=== PATIENT | female | born 1950 | race Caucasian/White ===

== ENCOUNTER 2016-07-23 11:30 | Emergency (ER) | payer MEDICARE, OTHER ==
[2016-07-23] MEDS ORDERED: Sodium Chloride 0.9% 10 ML Syringe FLUSH PRN (11:34)
--- NOTE | 2016-07-23 11:41 | EDM.PDOC ---
ED HPI GENERAL MEDICAL PROBLEM - General Chief Complaint: Behavioral/Psych Stated Complaint: ANXIETY Time Seen by Provider: 07/23/16 11:31 Source of Information: Reports: EMS, EMS Notes Reviewed, RN, RN Notes Reviewed History Limitations: Reports: No Limitations - History of Present Illness INITIAL COMMENTS - FREE TEXT/NARRATIVE: Patient is brought to the ED at [facility] via EMS for a severe panic attack. According to EMS, the patient was involved in a verbal argument with family which triggered the panic attack. EMS was then called due to hyperventilation. Onset: Today Onset Date: 07/23/16 ED ROS GENERAL - Review of Systems Review Of Systems: Unable To Obtain (due to patient currently hyperventilating; info receive from EMS crew.) ED EXAM, BEHAVIORAL HEALTH - Physical Exam Exam: See Below Exam Limited By: Altered Mental Status General Appearance: Anxious Eye Exam: Bilateral Eye: Normal Inspection Head: Atraumatic, Normocephalic Respiratory/Chest: No Respiratory Distress, Lungs Clear, Normal Breath Sounds Cardiovascular: Regular Rate, Rhythm Neurological: Alert, Oriented x 3 (due to hyperventilation; patient unable to give information) Psychiatric: Uncooperative, Other (currently hyperventilating) Skin Exam: Warm, Dry, Intact, Normal color, No rash COURSE, BEHAVIORAL HEALTH COMP - Course Vital Signs: Last Vital Signs Temp 36.9 C 07/23/16 11:41 Pulse 101 H 07/23/16 11:41 Resp 35 H 07/23/16 11:41 BP 134/97 H 07/23/16 11:41 Pulse Ox 98 07/23/16 11:41 Orders, Labs, Meds: Active Orders 24 hr Category Date Time Status Sodium Chloride 0.9% [Normal Saline] 1,000 ml Med 07/23/16 11:45 Active IV ASDIRECTED Sodium Chloride 0.9% [Saline Flush] Med 07/23/16 11:34 Active 10 ml FLUSH ASDIRECTED PRN Peripheral IV Insertion Adult [OM.PC] Routine Oth 07/23/16 11:34 Ordered Medication Orders Sodium Chloride (Normal Saline) 1,000 mls @ 999 mls/hr IV ASDIRECTED LYNNE Last Admin: 07/23/16 11:45 Dose: 999 mls/hr Sodium Chloride (Saline Flush) 10 ml FLUSH ASDIRECTED PRN PRN Reason: Keep Vein Open Medications Generic Name Dose Route Start Last Admin Trade Name Freq PRN Reason Stop Dose Admin Sodium Chloride 1,000 mls @ 999 mls/hr 07/23/16 11:45 07/23/16 11:45 Normal Saline IV 999 mls/hr ASDIRECTED LYNNE Administration Sodium Chloride 10 ml 07/23/16 11:34 Saline Flush FLUSH ASDIRECTED PRN Keep Vein Open Re-Assessment/Re-Exam: Patient much better after Valium given by EMS crew. She states she feels very tired and wants to go home. VSS. Assessment unremarkable. Re-Assessment/Re-Exam Date: 07/23/16 Medical Clearance: 07/23/16 12:13 Patient is medically cleared to be discharge home Discharge vs Psych Eval/Treatment:: 07/23/16 12:13 Discharge Departure - Departure Time of Disposition: 12:13 Disposition: Home, Self-Care 01 Condition: good Clinical Impression: Panic attack as reaction to stress - Discharge Information Instructions: Panic Attacks, Hyperventilation Referrals: PCP,Not In Area [Primary Care Provider] - Forms: ED Department Discharge Additional Instructions: 1. Stay well hydrated; rest and relax today 2. Avoid any stressful situations; keep low stimulus 3. See your Primary this week for a follow up - Problem List Review Problem List Initiated/Reviewed/Updated: Yes - My Orders Last 24 Hours: My Active Orders 07/23/16 11:34 Sodium Chloride 0.9% [Saline Flush] 10 ml FLUSH ASDIRECTED PRN Peripheral IV Insertion Adult [OM.PC] Routine 07/23/16 11:45 Sodium Chloride 0.9% [Normal Saline] 1,000 ml IV ASDIRECTED - Assessment/Plan Last 24 Hours: My Active Orders 07/23/16 11:34 Sodium Chloride 0.9% [Saline Flush] 10 ml FLUSH ASDIRECTED PRN Peripheral IV Insertion Adult [OM.PC] Routine 07/23/16 11:45 Sodium Chloride 0.9% [Normal Saline] 1,000 ml IV ASDIRECTED
[2016-07-23] MEDS ORDERED: Sodium Chloride 0.9% 1,000 ML IV SCH (11:45)
[2016-07-23 12:59] VITALS: BP 131/63
== END 2016-07-23 12:30 | disposition home or self-care (01) ==
LOC: VM.ED 11:30
DX: F41.0 Panic disorder [episodic paroxysmal anxiety] (principal); F43.9 Reaction to severe stress, unspecified
CPT/HCPCS: 96360; 99282; 99283; J7030